=== PATIENT | male | born 1975 | race Caucasian/White ===

== ENCOUNTER 2016-03-26 18:32 | Outpatient (CLI) ==
[2015-10-04 21:15] VITALS: BMI 19.5
== END 2016-03-26 18:33 ==
LOC: AMBL 18:32
PROVIDERS: ATTEND Emergency Medicine
DX: M54.2 Cervicalgia (principal); R00.1 Bradycardia, unspecified

== ENCOUNTER 2017-03-06 16:53 | Outpatient (CLI) ==
[2017-01-16 11:08] VITALS: BMI 21.6
[2017-03-06 17:01] LABS: FLU INTERNAL QC INTERNAL QC VALID; RAPID FLU A NEGATIVE (NEGATIVE); RAPID FLU B NEGATIVE (NEGATIVE)
== END 2017-03-06 16:54 | disposition home or self-care (01) ==
LOC: LAB 16:53
PROVIDERS: ATTEND Emergency Medicine
DX: J06.9 Acute upper respiratory infection, unspecified (principal)
CPT/HCPCS: 87804; 87880

== ENCOUNTER 2017-03-15 14:25 | Outpatient (CLI) ==
[2017-01-16 11:08] VITALS: BMI 21.6
--- NOTE | 2017-03-15 15:27 | US ---
Exam: Weber-scale and color Doppler ultrasonographic evaluation of the abdomen limited abdominal ultr asound Comparison: Right upper quadrant ultrasound performed 01/16/2017 CT abdomen pelvis performed 01/16/2017. Reason for exam: Right upper quadrant pain. FINDINGS: The liver measures approximately 9.96 cm in length with normal appearing echotexture. Ant egrade portal venous flow, and no intrahepatic ductal dilatation and no perihepatic free fluid. The gallbladder wall is mildly prominent measuring 0.31-0.34 cm with a small polyp or adherent intral uminal stone. The sonographic Chauhan's test is reportedly negative. The common bile duct measures 0.39 cm without intraluminal stone or polyp. The partially imaged pancreas appears grossly unremarkable without ductal dilatation. The right kidney measures 10.37 x 4.10 x 4.53 cm without hydronephrosis or nephrolithiasis. Impression: 1. Minimally prominent gallbladder wall measuring 0.31-0.34 cm. The sonographic Chauhan's test was r eportedly negative. Imaging findings are not consistent with acute cholecystitis. If clinical concern exists, a HIDA scan may be performed for further characterization. 2. Similar appearing tiny adherent gallstone or sub-centimeter polyp.
== END 2017-03-15 14:26 | disposition home or self-care (01) ==
LOC: RAD 14:25
PROVIDERS: ATTEND Emergency Medicine
DX: R10.11 Right upper quadrant pain (principal)

== ENCOUNTER 2017-03-21 07:53 | Outpatient (CLI) ==
[2017-01-16 11:08] VITALS: BMI 21.6
--- NOTE | 2017-03-21 11:23 | NM ---
EXAM: Hepatobiliary scan HISTORY: None of this type. Ultrasound 03/15/2017. COMPARISON: None of this type. PROCEDURE: The patient was injected with 5.2 mCi of 99mTc mebrofenin intravenously. Images of the ab domen were obtained at 5 min intervals for 30 minutes. Additional images were obtained at 45 minute s and 1 hour. The patient was then injected with 1.6 mcg of CCK by slow infusion while images of the gallbladder were obtained to assess gallbladder contraction. The patient experienced pain and nausea and also vomited during the injection. FINDINGS: Sequential images demonstrate normal uptake of tracer into the liver. Activity is seen in the intrahepatic biliary ducts at about 10 minutes. The activity appears in the gallbladder at about 15 minutes. Subsequent images demonstrate increasing activity in the gallbladder. Activity first a ppears in the small bowel following CCK. The gallbladder ejection fraction is 94% . IMPRESSION: 1.Normal hepatobiliary scan. 2.The gallbladder ejection fraction is 94% (normal).
== END 2017-03-21 07:54 | disposition home or self-care (01) ==
LOC: RAD 07:53
PROVIDERS: ATTEND Emergency Medicine
DX: R10.11 Right upper quadrant pain (principal)

== ENCOUNTER 2018-01-11 14:56 | Outpatient (CLI) ==
[2017-01-16 11:08] VITALS: BMI 21.6
--- NOTE | 2018-01-11 15:39 | DI ---
EXAM: Two views of the right hip HISTORY: Pain in the right hip. COMPARISON: CT abdomen pelvis 01/16/2017 FINDINGS: There is no cortical irregularity or displaced fracture of the right hip. The joint spaces maintained. The adjacent osseous structures are normal. The soft tissues are normal. IMPRESSION: No acute abnormality of the right hip.
== END 2018-01-11 14:57 | disposition home or self-care (01) ==
LOC: RAD 14:56
PROVIDERS: ATTEND Nurse Practitioner Family
DX: M25.551 Pain in right hip (principal); W19.XXXA Unspecified fall, initial encounter